=== PATIENT | female | born 1950 | race Caucasian/White ===

== ENCOUNTER 2018-08-17 02:59 | Emergency (ER) | payer OTHER ==
[~2018-08-17] VITALS: Ht 172.7 cm; Wt 136.1 kg
[2018-08-17 04:09] LABS: Basophils # (auto) 0.1 uL; Basophils % (auto) 0.6 % (0.0-2.0); Eosinophils # (auto) 0.6 uL; Eosinophils % (auto) 5.6 % (0.0-7.0); Hematocrit 38.4 % (36.0-46.0); Hemoglobin 12.7 g/dL (12.2-16.2); Lymphocytes # (auto) 2.1 uL; Lymphocytes % (auto) 18.6 % (10.0-50.0); Mean Corpuscular Hemoglobin 27.8 pg (28.0-32.0); Mean Corpuscular Volume 84.2 fL (80.0-100.0); Monocytes # (auto) 0.8 uL; Monocytes % (auto) 7.2 % (0.0-12.0); Neutrophils # (auto) 7.7 uL; Platelet Count (auto) 247 10^3/uL (140-450); Red Blood Cells 4.56 10^6/uL (4.0-5.20); Red Cell Distribution Width 16.1 % (11.8-14.3); White Blood Cell 11.4 10^3/uL (4.4-10.8)
[2018-08-17] MEDS: LORazepam 2MG/ML-1ML VIAL IV ONE (04:13)
[2018-08-17] MEDS: ASPirin 81 mg TAB PO ONE (04:13)
[2018-08-17 04:25] LABS: INR 0.93 (0.9-1.15); Partial Thromboplastin Time 25.6 sec (23.78-33.04)
[2018-08-17 04:28] LABS: Chloride 103 mmol/L (98-107); Potassium 4.1 mmol/L (3.5-5.1); Sodium 138 mmol/L (136-145)
[2018-08-17 04:32] LABS: Albumin 3.3 g/dL (3.4-5.0); Anion Gap 11 (5-15); BUN/Creatinine Ratio 13.1; Blood Urea Nitrogen 23 mg/dL (7-18); Calcium 8.5 mg/dL (8.5-10.1); Carbon Dioxide 24 mmol/L (21-32); GFR African American 37 mL/min; GFR Non-African American 31 mL/min; Glucose 116 mg/dL (74-106); Magnesium 2.7 mg/dL (1.6-2.6)
[2018-08-17 04:37] LABS: Alanine Aminotransferase 20 U/L (13-56); Alkaline Phosphatase 64 U/L (45-117); Aspartate Aminotransferase 15 U/L (15-37); Bilirubin, Total 0.5 mg/dL (0.2-1.0); Total Protein 8.3 g/dL (6.4-8.2)
[2018-08-17] MEDS: PANTOPRAZOLE 40 MG/10 ML VIAL IV ONE (05:35)
[2018-08-17 09:05] LABS: Urine Bacteria NONE SEEN /hpf (None Seen); Urine Blood Negative /uL (Negative); Urine Specific Gravity 1.015 (1.001-1.035); Urine WBC 2 /hpf (0 - 5)
[2018-08-17 09:49] VITALS: BP 131/53
[2018-08-17] MEDS ORDERED: ACET-1156 PO (09:59)
[2018-08-17] MEDS ORDERED: CAR3125T PO (09:59)
[2018-08-17] MEDS ORDERED: ALPR0.25 PO (09:59)
[2018-08-17] MEDS ORDERED: FLUT1AER3 IN (09:59)
[2018-08-17] MEDS ORDERED: SERT-274 PO (09:59)
[2018-08-17] MEDS ORDERED: AMIO400T3 PO (09:59)
[2018-08-17] MEDS ORDERED: POTA10TA51 PO (09:59)
[2018-08-17] MEDS ORDERED: OMEP20TA PO (09:59)
[2018-08-17] MEDS ORDERED: AMLO5TAB13 PO (09:59)
[2018-08-17] MEDS ORDERED: FURO40TA PO (09:59)
[2018-08-17] MEDS ORDERED: MAGN400T5 PO (09:59)
[2018-08-17] MEDS ORDERED: LOSA-49 PO (09:59)
== END 2018-08-17 13:07 | disposition home or self-care (01) ==
LOC: EDBD 02:59 → ER 03:05
DX: I48.91 Unspecified atrial fibrillation (principal); M19.90 Unspecified osteoarthritis, unspecified site; J44.9 Chronic obstructive pulmonary disease, unspecified; K21.9 Gastro-esophageal reflux disease without esophagitis; E78.5 Hyperlipidemia, unspecified
CPT/HCPCS: 36415; 71045; 80053; 81001; 83735; 83880; 84443; 84484; 85025; 85610; 85730; 93005; 94761; 96374; 96375; 99285; C9113; J2060